=== PATIENT | female | born 2000 | race Hispanic/Latino ===

== ENCOUNTER → 2022-07-01 | Outpatient (CLI) | payer OTHER | LOC: M RAD 17:12 | PROVIDERS: ATTEND Physician Assistant | DX: M25.511 Pain in right shoulder (principal); M54.2 Cervicalgia; M75.31 Calcific tendinitis of right shoulder ==

== ENCOUNTER → 2022-08-05 | Outpatient (CLI) | payer OTHER | LOC: M SOG 08:30 | PROVIDERS: ATTEND Orthopaedic Surgery Adult Reconstructive Orthopaedic Surgery | DX: M25.561 Pain in right knee (principal) ==

== ENCOUNTER 2022-08-13 12:45 | Outpatient (RCR) | payer OTHER | END 2022-08-21 | LOC: M PT 12:45 | PROVIDERS: ATTEND Nurse Practitioner Family | DX: M67.813 Other specified disorders of tendon, right shoulder (principal) ==

== ENCOUNTER 2022-09-09 10:45 | Outpatient (RCR) | payer OTHER | END 2022-09-21 | LOC: M PT 10:45 | PROVIDERS: ATTEND Nurse Practitioner Family | DX: M67.813 Other specified disorders of tendon, right shoulder (principal) ==

== ENCOUNTER 2023-05-07 16:58 | Emergency (ER) | payer OTHER ==
[~2023-05-07] VITALS: Ht 147.3 cm; Wt 46.6 kg
[2023-05-07 17:56] LABS: BASO % 0.5 % (0.0-1.0); EOS % 0.3 % (0.0-3.0); HEMATOCRIT 38.7 % (36.0-47.0); HEMOGLOBIN 13.2 g/dl (12.0-15.5); LYMPH # 1.5 10^3/uL (1.5-5.0); LYMPH % 23.8 % (24.0-44.0); MEAN CORPUSCULAR HEMOGLOBIN 32.4 pg (27.0-33.0); MEAN CORPUSCULAR HGB CONC 34.1 g/dl (32.0-36.5); MEAN CORPUSCULAR VOLUME 94.9 fl (80.0-96.0); MONO # 0.5 10^3/uL (0.0-0.8); MONO % 8.7 % (2.0-8.0); NEUTROPHILS # 4.1 10^3/uL (1.5-8.5); NEUTROPHILS % 66.5 % (36.0-66.0); PLATELET COUNT, AUTOMATED 282 10^3/uL (150-450); RED BLOOD COUNT 4.08 10^6/uL (4.00-5.40); WHITE BLOOD COUNT 6.2 10^3/uL (4.0-10.0)
[2023-05-07 18:26] LABS: ALBUMIN 4.2 G/DL (3.2-5.2); ALKALINE PHOSPHATASE 79 U/L (46-116); ALT/SGPT 10 U/L (7.0-40); AST/SGOT 12 U/L (<34); BILIRUBIN,DIRECT 0.4 MG/DL (<0.4); BILIRUBIN,TOTAL 1.9 MG/DL (0.3-1.2); TOTAL PROTEIN 7.9 G/DL (5.7-8.2)
[2023-05-07 18:28] LABS: THYROID STIMULATING HORMONE 1.557 uIU/ML (0.55-4.78)
[2023-05-07 18:52] LABS: CK-MB VALUE MASS < 1.0 NG/ML (<3.6)
[2023-05-07 18:55] LABS: CPK CREATINE PHOSPHOKINASE 57 U/L (34-145); MB/CK RELATIVE INDEX 1.75 (< OR =4)
[2023-05-07] MEDS ORDERED: MECLIZINE 25 MG TABLET PO ONE (18:55)
[2023-05-07 18:58] LABS: HCG, SERUM QUALITATIVE NEGATIVE (NEGATIVE)
[2023-05-07] MEDS ORDERED: ISOVUE-370 76% 100ML VIAL As Ordered ONE (19:09)
[2023-05-07 19:12] VITALS: BP 111/62; TEMP 97.6; O2SAT 98
[2023-05-07] MEDS ORDERED: MECL1TAB31 PO (20:54)
== END 2023-05-07 21:01 | disposition home or self-care (01) ==
LOC: M ED 16:58
DX: R42 Dizziness and giddiness (principal); F41.9 Anxiety disorder, unspecified; Z91.018 Allergy to other foods
CPT/HCPCS: 70450; 71275; 72125; 80047; 80076; 82550; 82553; 83735; 84443; 84702; 84703; 85025; 93005; 99284; Q9967

== ENCOUNTER → 2024-03-30 | Outpatient (REF) | payer OTHER, MEDICAID ==
[~2024-03-30] MED LIST: MECL-209 PO
[2024-03-30 14:10] LABS: ALBUMIN 4.1 G/DL (3.2-5.2); ALKALINE PHOSPHATASE 86 U/L (46-116); ALT/SGPT 16 U/L (7.0-40); AST/SGOT 17 U/L (<34); BILIRUBIN,TOTAL 1.7 MG/DL (0.3-1.2); BLOOD UREA NITROGEN 10 MG/DL (9-23); CALCIUM LEVEL 9.3 MG/DL (8.5-10.1); CARBON DIOXIDE LEVEL 25 MMOL/L (20-31); CHLORIDE LEVEL 105 MMOL/L (98-107); CHOLESTEROL LEVEL 234 MG/DL (<200); CHOLESTEROL RISK RATIO 3.66 (<5); CREATININE FOR GFR 0.51 MG/DL (0.55-1.30); GLOMERULAR FILTRATION RATE > 60.0 (>60); GLUCOSE, FASTING 87 MG/DL (60-100); HDL CHOLESTEROL 63.8 MG/DL (>40); LDL CHOLESTEROL 153.2 MG/DL (<100); NON-HDL-C 170.2 MG/DL; POTASSIUM SERUM 3.8 MMOL/L (3.5-5.1); SODIUM LEVEL 137 MMOL/L (136-145); TOTAL PROTEIN 7.8 G/DL (5.7-8.2); TRIGLYCERIDES LEVEL 85 MG/DL (<150)
[2024-03-30 14:10] LABS: Trichomonas vaginalis (AMP) NOT DETECTED (NEGATIVE)
[2024-03-30 14:12] LABS: TOTAL 25(OH) VITAMIN D 8.5 NG/ML (20.0-100.0)
[2024-03-30 14:34] LABS: GC DNA AMPLIFICATION NEGATIVE (NEGATIVE)
[2024-03-30 14:43] LABS: HIV 1&2 SCREEN NEGATIVE (NEGATIVE)
[2024-03-30 14:50] LABS: HEPATITIS C VIRUS ABY INDEX 0.02 INDEX (<0.8)
== END ==
LOC: M LAB REF 12:16
PROVIDERS: ATTEND Physician Assistant
DX: Z11.9 Encounter for screening for infectious and parasitic diseases, unspecified (principal); E55.9 Vitamin D deficiency, unspecified; Z13.220 Encounter for screening for lipoid disorders

== ENCOUNTER → 2024-08-03 | Outpatient (REF) | payer OTHER, MEDICAID ==
[2024-08-04 13:23] LABS: ALBUMIN 4.2 G/DL (3.2-5.2); ALKALINE PHOSPHATASE 84 U/L (46-116); ALT/SGPT 10 U/L (7.0-40); AST/SGOT 10 U/L (<34); BILIRUBIN,TOTAL 1.8 MG/DL (0.3-1.2); BLOOD UREA NITROGEN 10 MG/DL (9-23); CALCIUM LEVEL 9.6 MG/DL (8.5-10.1); CARBON DIOXIDE LEVEL 29 MMOL/L (20-31); CHLORIDE LEVEL 107 MMOL/L (98-107); CREATININE FOR GFR 0.54 MG/DL (0.55-1.30); GLOMERULAR FILTRATION RATE > 60.0 (>60); GLUCOSE, FASTING 79 MG/DL (60-100); POTASSIUM SERUM 3.8 MMOL/L (3.5-5.1); SODIUM LEVEL 139 MMOL/L (136-145)
[2024-08-04 13:25] LABS: FREE T4 1.13 NG/DL (0.89-1.76); THYROID STIMULATING HORMONE 1.083 uIU/ML (0.55-4.78)
== END ==
LOC: M LAB REF 12:26
PROVIDERS: ATTEND Physician Assistant
DX: R51.9 Headache, unspecified (principal)